=== PATIENT | female | born 1990 | race African-American/Black ===

== ENCOUNTER 2017-03-09 10:46 | Emergency (ER) | payer MEDICAID ==
[2017-03-09 11:00] VITALS: BP 116/78
--- NOTE | 2017-03-09 11:08 | ER Document Report ---
ED Medical Screen (RME) - General Chief Complaint: Abdominal Pain Stated Complaint: URINARY PAIN Time Seen by Provider: 03/09/17 11:06 Notes: Patient says that she is having discomfort with urinating over the past week. She is prone to getting UTIs. Has not noted any urinary burning or stinging or blood present. She started noticing some pain in her right lower abdomen this morning. She has not had any vomiting or diarrhea. Has not had any fever. Patient says she is prone to getting BV. LMP February 19, on no control. No abdominal surgeries. Only medication is phenteramine for weight control TRAVEL OUTSIDE OF THE [place] IN LAST 30 DAYS: No - Related Data Allergies/Adverse Reactions: No Known Allergies Allergy (Verified 03/09/17 10:58) Past Medical History Renal/ Medical History: Denies: Hx Peritoneal Dialysis - Immunizations Immunizations up to date: Yes Hx Diphtheria, Pertussis, Tetanus Vaccination: Yes Physical Exam - Vital signs Vitals: Temp Pulse Resp BP Pulse Ox 98.7 F 85 16 116/78 100 03/09/17 10:59 03/09/17 10:59 03/09/17 10:59 03/09/17 10:59 03/09/17 10:59 Course - Vital Signs Vital signs: Temp Pulse Resp BP Pulse Ox 98.7 F 85 16 116/78 100 03/09/17 10:59 03/09/17 10:59 03/09/17 10:59 03/09/17 10:59 03/09/17 10:59
[2017-03-09 11:36] LABS: ABSOLUTE EOSINOPHILS # (AUTO) 0.3 10^3/uL (0.0-0.6); ABSOLUTE LYMPHOCYTES (AUTO) 1.3 10^3/uL (0.5-4.7); ABSOLUTE MONOCYTES (AUTO) 0.6 10^3/uL (0.1-1.4); ABSOLUTE NEUT (AUTO) 3.7 10^3/uL (1.7-8.2); BASOPHILS % (AUTO) 0.6 % (0-2); EOSINOPHILS % (AUTO) 5.6 % (0-6); HEMATOCRIT 36.9 % (36.0-47.0); HGB HCT DIFFERENCE -0.9; LYMPHOCYTES % (AUTO) 21.3 % (13-45); MEAN CORPUSCULAR HEMOGLOBIN 27.4 pg (27.0-33.4); MEAN CORPUSCULAR HGB CONC 32.7 g/dL (32.0-36.0); MEAN CORPUSCULAR VOLUME 84 fl (80-97); MONOCYTES % (AUTO) 9.3 % (3-13); RED BLOOD COUNT 4.39 10^6/uL (3.72-5.28); RED CELL DISTRIBUTION WIDTH 13.5 % (11.5-14.0); SEGMENTED NEUTROPHILS % (AUTO) 63.2 % (42-78); WHITE BLOOD COUNT 5.9 10^3/uL (4.0-10.5)
[2017-03-09 11:41] LABS: APPEARANCE,URINE SLIGHTLY-CLOUDY; BILIRUBIN,URINE NEGATIVE (NEGATIVE); GLUCOSE, URINE NEGATIVE (NEGATIVE); KETONES,URINE NEGATIVE (NEGATIVE); LEUKOCYTE ESTERASE,URINE SMALL (NEGATIVE); NITRITE,URINE NEGATIVE (NEGATIVE); PROTEIN,URINE 30 mg/dL (NEGATIVE); URINE SPECIFIC GRAVITY 1.018
--- NOTE | 2017-03-09 12:19 | ER Document Report ---
ED GI/ - General TRAVEL OUTSIDE OF THE [place] IN LAST 30 DAYS: No - HPI Onset: Other - Refer to HPI notes Similar symptoms previously: Yes Recently seen / treated by doctor: No <GAMALIEL BALDWIN - Last Filed: 03/09/17 13:31> <SUNNY NICKERSON - Last Filed: 03/09/17 14:48> - General Chief Complaint: Abdominal Pain Stated Complaint: URINARY PAIN Time Seen by Provider: 03/09/17 11:06 Notes: Patient is a 26 year old female presenting to the emergency department for pelvic pain and abdominal pain. Patient has discomfort and pelvic pain after she urinates. Patient also has had some RLQ abdominal pain this morning. Patient has yellowish/brownish vaginal discharge x4 days. Patient's last menstrual cycle was 02/19/17. Patient states she has frequent UTIs but denies any dysuria, burning, or hematuria. Patient takes phenteramine for weight control. (GAMALIEL BALDWIN) - Related Data Allergies/Adverse Reactions: No Known Allergies Allergy (Verified 03/09/17 10:58) Past Medical History - General Information source: Patient - Social History Smoking Status: Never Smoker Cigarette use (# per day): No Chew tobacco use (# tins/day): No Frequency of alcohol use: Occasional Drug Abuse: None Occupation: [employer] Family History: CAD, Hyperlipidemia, Thyroid Disfunction Patient has suicidal ideation: No Patient has homicidal ideation: No - Medical History Medical History: Negative Surgical Hx: Negative - Immunizations Immunizations up to date: Yes Hx Diphtheria, Pertussis, Tetanus Vaccination: Yes <GAMALIEL BALDWIN - Last Filed: 03/09/17 13:31> Review of Systems - Review of Systems Constitutional: No symptoms reported EENT: No symptoms reported Cardiovascular: No symptoms reported Respiratory: No symptoms reported Gastrointestinal: See HPI, Abdominal pain Genitourinary: No symptoms reported Female Genitourinary: See HPI, Last menstrual period - 02/19/17, Vaginal discharge Musculoskeletal: No symptoms reported Skin: No symptoms reported Hematologic/Lymphatic: No symptoms reported Neurological/Psychological: No symptoms reported -: Yes All other systems reviewed and negative <GAMALIEL BALDWIN - Last Filed: 03/09/17 13:31> Physical Exam - Vital signs Interpretation: Normal - General General appearance: Appears well, Alert In distress: Mild - HEENT Head: Normocephalic, Atraumatic Eyes: Normal Pupils: PERRL Mucous membranes: Moist - Respiratory Respiratory status: No respiratory distress Chest status: Nontender Breath sounds: Normal Chest palpation: Normal - Cardiovascular Rhythm: Regular Heart sounds: Normal auscultation Murmur: No - Abdominal Inspection: Normal Distension: No distension Bowel sounds: Normal Tenderness: Tender - Lower abdominal and pelvic tenderness to palpation Organomegaly: No organomegaly - Back Back: Normal, Nontender - Extremities General upper extremity: Normal inspection, Normal ROM, Normal strength General lower extremity: Normal inspection, Normal ROM, Normal strength - Neurological Neuro grossly intact: Yes Cognition: Normal Orientation: AAOx4 [place] Coma Scale Eye Opening: Spontaneous [place] Coma Scale Verbal: Oriented [place] Coma Scale Motor: Obeys Commands [place] Coma Scale Total: 15 Speech: Normal - Psychological Associated symptoms: Normal affect, Normal mood - Skin Skin Temperature: Warm Skin Moisture: Dry <GAMALIEL BALDWIN - Last Filed: 03/09/17 13:31> - Genitourinary External exam: Normal Speculum exam: Cervix closed, Vaginal discharge Vaginal bleeding: None Bimanuel exam: Cervical motion tender, Adnexal tenderness, Other - Uterus is very tender to palpate <SUNNY NICKERSON - Last Filed: 03/09/17 14:48> - Vital signs Vitals: Temp Pulse Resp BP Pulse Ox 98.7 F 85 16 116/78 100 03/09/17 10:59 03/09/17 10:59 03/09/17 10:59 03/09/17 10:59 03/09/17 10:59 Course - Laboratory Result Diagrams: 03/09/17 11:15 <GAMALIEL BALDWIN - Last Filed: 03/09/17 13:31> - Laboratory Result Diagrams: 03/09/17 11:15 <SUNNY NICKERSON - Last Filed: 03/09/17 14:48> - Vital Signs Vital signs: Temp Pulse Resp BP Pulse Ox 98.7 F 85 16 116/78 100 03/09/17 10:59 03/09/17 10:59 03/09/17 10:59 03/09/17 10:59 03/09/17 10:59 - Laboratory Laboratory results interpreted by me: 03/09/17 11:15 Urine Protein 30 H Urine Urobilinogen 2.0 H Ur Leukocyte Esterase SMALL H Discharge <GAMALIEL BALDWIN - Last Filed: 03/09/17 13:31> <GUILLERMO NICKERSONALL - Last Filed: 03/09/17 14:48> - Discharge Clinical Impression: Trichomonas infection, Pelvic inflammatory disease (PID) Condition: Stable Disposition: HOME, SELF-CARE Additional Instructions: Pelvic Inflammatory Disease: You have been diagnosed as having pelvic inflammatory disease (PID). This is an infection of the fallopian tubes and surrounding areas of the pelvis. Symptoms are usually pelvic pain and discharge. The infection can do permanent damage to the tubes and ovaries. It should be taken very seriously. Treatment is antibiotics, which may be given by vein or by injection if the infection seems serious. It's important that you receive all recommended medication. Condoms help prevent spread of this infection to others. Because this infection is spread sexually, it's important that your sexual partner be checked before resuming sexual relations. If a culture shows gonorrhea or chlamydia organisms, the law requires that this be reported to the health department. Call the doctor or return at once if you develop increasing fever, rash, severe pelvic pain, vaginal bleeding (other than your period), or problems with your bladder or bowels. Trichomonas Infection: Trichomoniasis is infection of the vagina or male genital tract with Trichomonas vaginalis. It can be asymptomatic or cause urethritis, vaginitis, or occasionally cystitis, epididymitis, or prostatitis. Diagnosis is by microscopic examination of vaginal or prostatic secretions or by urethral culture. Patients and sex partners are treated with metronidazole. T. vaginalis is a flagellated, sexually transmitted protozoan that more often infects women (about 20% of women of reproductive age) than men. Infection may be asymptomatic in either sex, but asymptomatic is the rule for men. In men, protozoa may persist for long periods in the tract without causing symptoms; thus, protozoa may be transmitted unwittingly to sex partners. Trichomoniasis may account for up to 5% of nongonococcal, nonchlamydial urethritis in men in some areas. Co-infection with gonorrhea and other sexually transmitted diseases (STDs) is common. In women, symptoms range from none to copious, yellow-green, frothy vaginal discharge with soreness of the vulva and perineum, dyspareunia, and dysuria. Asymptomatic infection may become symptomatic at any time as the vulva and perineum become inflamed and edema develops in the labia. The vaginal bell and surface of the cervix may have punctate, red "strawberry" spots. Urethritis and possibly cystitis may also occur. Men are usually asymptomatic; however, sometimes urethritis results in a discharge that may be transient, frothy, or purulent or that causes dysuria and frequency, usually early in the morning. Often, urethritis is mild and causes only minimal urethral irritation and occasional moisture at the urethral meatus , under the foreskin, or both. Epididymitis and prostatitis are rare complications. Trichomoniasis is suspected in women with vaginitis, in men with urethritis , and in their sex partners. Suspicion is high if symptoms persist after patients have been evaluated and treated for other infections such as gonorrhea and chlamydial, mycoplasmal, and ureaplasmal infections. In women, diagnosis is based on clinical criteria and in-office testing. The saline wet mount is examined microscopically as soon as possible to detect trichomonads.In men, microscopy of urine is insensitive, although occasionally organisms are visible in a first-voided morning specimen or a centrifuged specimen. Cultures of urine and urethral swabs are more sensitive. As with diagnosis of any STD, patients with trichomoniasis should be tested to exclude other common STDs such as gonorrhea and chlamydial infection. Metronidazole or tinidazole 2 g po in a single dose cures up to 95% of women if sex partners are treated simultaneously. Effectiveness of single-dose regimens in men is not as clear, so treatment is typically with metronidazole or tinidazole 500 mg bid for 5 to 7 days. Sex partners should be screened and treated for trichomoniasis and other STDs. If poor adherence to follow-up is likely, treatment can be initiated in sex partners of patients with documented trichomoniasis without confirming the diagnosis in the partner. TAKE THE MEDICATIONS PRESCRIBED. HAVE YOUR PARTNER TREATED AT THE HEALTH DEPARTMENT. FOLLOW UP WITH YOUR DOCTOR NEXT WEEK FOR RECHECK. Prescriptions: Doxycycline Hyclate 100 mg PO BID #14 capsule Metronidazole 500 mg PO BID #14 tablet Referrals: CURT SAUL MD [Primary Care Provider] - Follow up in 3-5 days Sharon Attestation: 03/09/17 14:48 I personally performed the services described in the documentation, reviewed and edited the documentation which was dictated to the scribe in my presence, and it accurately records my words and actions. (SUNNY NICKERSON) Scribe Documentation - Scribe Written by Scribe:: Sharon Blackwood 03/09/17 12:26 acting as scribe for :: Malinda <GAMALIEL BALDWIN - Last Filed: 03/09/17 13:31>
[2017-03-09] MEDS ORDERED: LIDOCAINE 1% INJ-PF (10 MG/ML) 30 ML SDV INJ ONE (12:59)
[2017-03-09] MEDS ORDERED: CEFTRIAXONE INJ 1000 MG VIAL IM ONE (12:59)
[2017-03-09] MEDS ORDERED: DOXYCYCLINE HYCLATE 100 MG TABLET PO ONE (13:02)
[2017-03-09 14:44] LABS: CHLAM PCR NOT DETECTED (NOT DETECT)
== END 2017-03-09 14:56 | disposition left against medical advice (07) ==
LOC: ER 10:46
DX: A59.00 Urogenital trichomoniasis, unspecified (principal); N74 Female pelvic inflammatory disorders in diseases classified elsewhere; Z87.440 Personal history of urinary (tract) infections; Z79.899 Other long term (current) drug therapy
CPT/HCPCS: 99284; 96372; 87210; 36415; 83690; 84703; 85025; 81001; 87491; 87591; J3490; J0696

== ENCOUNTER 2017-04-21 09:18 | Emergency (ER) | payer SELFPAY ==
[2017-04-21 09:32] VITALS: BP 116/70
--- NOTE | 2017-04-21 09:45 | ER Document Report ---
HPI - HPI Patient complains to provider of: dysuria Onset: Other - 2 weeks Onset/Duration: Persistent Quality of pain: Burning Pain Level: 1 Context: Patient presents complaining of cloudy urine with odor and dysuria. Patient complains of vaginal irritation. Patient denies any vaginal bleeding or discharge. Patient denies any concerns about . Patient states she was here last month for similar complaint and was treated with an antibiotic. Patient states symptoms initially improved and then returned about a week later. Associated Symptoms: Other - dysuria. denies: Fever Exacerbated by: Denies Relieved by: Denies - REPRODUCTIVE Reproductive: DENIES: : - DERM Skin Color: Normal Past Medical History - General Last Menstrual Period: 03/21/2017 - Social History Smoking Status: Never Smoker Chew tobacco use (# tins/day): No Frequency of alcohol use: Occasional Drug Abuse: None Family History: CAD, Hyperlipidemia, Thyroid Disfunction Patient has suicidal ideation: No Patient has homicidal ideation: No Renal/ Medical History: Denies: Hx Peritoneal Dialysis Surgical Hx: Negative - Immunizations Immunizations up to date: Yes Hx Diphtheria, Pertussis, Tetanus Vaccination: Yes Vertical Provider Document - CONSTITUTIONAL Agree With Documented VS: Yes Exam Limitations: No Limitations - INFECTION CONTROL TRAVEL OUTSIDE OF THE [place] IN LAST 30 DAYS: No - HEENT HEENT: Atraumatic, Normocephalic - NECK Neck: Normal Inspection, Supple - RESPIRATORY Respiratory: Breath Sounds Normal, No Respiratory Distress O2 Sat by Pulse Oximetry: 97 - CARDIOVASCULAR Cardiovascular: Regular Rate, Regular Rhythm, No Murmur - GI/ABDOMEN Gastrointestinal: Abdomen Soft, Abdomen Non-Tender, No Organomegaly - REPRODUCTIVE Female Genitalia: CMT. negative: Adnexal Pain-Right, Adnexal Pain-Left Notes: small amount of blood to vagina, no clots - BACK Back: Normal Inspection. negative: CVA Tenderness-Right, CVA Tenderness-Left - MUSCULOSKELETAL/EXTREMETIES Musculoskeletal/Extremeties: SETH DUPREE - NEURO Level of Consciousness: Awake, Alert, Appropriate Motor/Sensory: No Motor Deficit - DERM Integumentary: Warm, Dry, No Rash Course - Re-evaluation Re-evalutation: 04/21/17 11:01 Patient at her previous ER visit was given Rocephin and a single dose of doxycycline. Patient states that she got upset during her visit and left prior to receiving her diagnosis or her prescriptions. Patient was not treated for trichomonas infection at her previous ER visit. Although patient's wet prep today was not positive for trichomonas, plan will be to treat patient as her symptoms are clinically consistent with a trichomonas infection. Patient encouraged to have her partner seek treatment for Trichomonas as well. Plan will be to cover for gonorrhea and chlamydia in addition to the trichomonas. Consulted with Dr. Lacy who is in agreement with this plan - Vital Signs Vital signs: Temp Pulse Resp BP Pulse Ox 98.2 F 80 14 116/70 97 04/21/17 09:27 04/21/17 09:27 04/21/17 09:33 04/21/17 09:27 04/21/17 09:27 - Laboratory Laboratory results interpreted by me: 04/21/17 11:02 Labs- Entire Visit 04/21/17 04/21/17 09:40 09:50 Urine Color YELLOW Urine Appearance SLIGHTLY-CLOUDY Urine pH 5.0 Ur Specific [place] 1.016 Urine Protein NEGATIVE Urine Glucose (UA) NEGATIVE Urine Ketones NEGATIVE Urine Blood SMALL H Urine Nitrite NEGATIVE Urine Bilirubin NEGATIVE Urine Urobilinogen NEGATIVE Ur Leukocyte Esterase TRACE H Urine WBC (Auto) 14 Urine RBC (Auto) 1 Urine Bacteria (Auto) TRACE Squamous Epi Cells Auto 1 Urine Mucus (Auto) FEW Urine Ascorbic Acid NEGATIVE Urine HCG, Qual NEGATIVE Epi Cells (Wet Prep) 3+ EPITHELIALS SEEN Bacteria (Wet Prep) 3+ BACTERIA SEEN Trichomonas (Wet Prep) NO TRICHOMONAS SEEN Vaginal WBC FEW WBCS SEEN Vaginal RBC 1+ RBCS SEEN Vaginal Yeast NO YEAST SEEN reviewed Labs from patient's previous ER visit 04/21/17 14:30 Discharge - Discharge Clinical Impression: Trichomonal infection, Urinary symptom or sign Condition: Stable Disposition: HOME, SELF-CARE Instructions: Trichomonas Infection ([facility]), Metronidazole ([facility]), Rocephin ([facility]) , Azithromycin ([facility]) Additional Instructions: Return immediately for any new or worsening symptoms Followup with your primary care provider, call tomorrow to make a followup appointment Have your partner seek treatment for trichomonas Cultures are pending, we will call if you need any different treatment Forms: Return to Work Referrals: [facility] [Provider Group] - Follow up as needed
[2017-04-21] MEDS ORDERED: ONDANSETRON 4 MG TAB.RAPDIS PO ONE (09:55)
[2017-04-21 09:58] LABS: APPEARANCE,URINE SLIGHTLY-CLOUDY; BILIRUBIN,URINE NEGATIVE (NEGATIVE); GLUCOSE, URINE NEGATIVE (NEGATIVE); KETONES,URINE NEGATIVE (NEGATIVE); LEUKOCYTE ESTERASE,URINE TRACE (NEGATIVE); NITRITE,URINE NEGATIVE (NEGATIVE); PROTEIN,URINE NEGATIVE (NEGATIVE); URINE SPECIFIC GRAVITY 1.016; UROBILINOGEN,URINE NEGATIVE mg/dL (<2.0)
[2017-04-21] MEDS ORDERED: CEFTRIAXONE INJ 1000 MG VIAL IM ONE (10:43)
[2017-04-21] MEDS ORDERED: AZITHROMYCIN 250 MG TABLET PO ONE (10:43)
[2017-04-21] MEDS ORDERED: LIDOCAINE 1% INJ-PF (10 MG/ML) 30 ML SDV INJ ONE (10:43)
[2017-04-21] MEDS ORDERED: METRONIDAZOLE 500 MG TABLET PO ONE (10:43)
[2017-04-21 12:03] LABS: CHLAM PCR NOT DETECTED (NOT DETECT)
== END 2017-04-21 11:42 | disposition home or self-care (01) ==
LOC: ER 09:18
DX: A59.9 Trichomoniasis, unspecified (principal); R10.2 Pelvic and perineal pain
CPT/HCPCS: 99283; 96372; 87086; 87210; 81025; 87088; 81001; 87186; 87491; 87591; S0119; J3490; J0696

== ENCOUNTER 2018-10-11 10:40 | Emergency (ER) | payer MEDICAID ==
[2018-10-11 12:39] LABS: APPEARANCE,URINE CLEAR; BILIRUBIN,URINE NEGATIVE (NEGATIVE); COLOR,URINE YELLOW; GLUCOSE, URINE NEGATIVE (NEGATIVE); KETONES,URINE NEGATIVE (NEGATIVE); LEUKOCYTE ESTERASE,URINE NEGATIVE (NEGATIVE); NITRITE,URINE NEGATIVE (NEGATIVE); PROTEIN,URINE NEGATIVE (NEGATIVE); URINE SPECIFIC GRAVITY 1.011; UROBILINOGEN,URINE NEGATIVE mg/dL (<2.0)
[2018-10-11 12:51] LABS: ABSOLUTE EOSINOPHILS # (AUTO) 0.5 10^3/uL (0.0-0.6); ABSOLUTE MONOCYTES (AUTO) 0.6 10^3/uL (0.1-1.4); ABSOLUTE NEUT (AUTO) 3.7 10^3/uL (1.7-8.2); BASOPHILS % (AUTO) 0.8 % (0-2); EOSINOPHILS % (AUTO) 8.6 % (0-6); HEMATOCRIT 31.6 % (36.0-47.0); HEMOGLOBIN 10.7 g/dL (12.0-15.5); MEAN CORPUSCULAR HGB CONC 33.8 g/dL (32.0-36.0); MEAN CORPUSCULAR VOLUME 80 fl (80-97); MONOCYTES % (AUTO) 9.9 % (3-13); PLATELET COUNT 354 10^3/uL (150-450); RED BLOOD COUNT 3.95 10^6/uL (3.72-5.28); RED CELL DISTRIBUTION WIDTH 17.1 % (11.5-14.0); SEGMENTED NEUTROPHILS % (AUTO) 63.7 % (42-78); TOTAL CELLS COUNTED % (AUTO) 100 %; WHITE BLOOD COUNT 5.8 10^3/uL (4.0-10.5)
--- NOTE | 2018-10-11 12:57 | ER Document Report ---
ED General - General Chief Complaint: Vag Bleeding, +preg <12wks Stated Complaint: ABDOMINAL CRAMPING Time Seen by Provider: 10/11/18 11:54 TRAVEL OUTSIDE OF THE [place] IN LAST 30 DAYS: No - HPI Notes: Patient is a 28-year-old female that presents to the emergency department for chief complaint of vaginal bleeding in . Patient is with a LMP 08/22/18, 7 weeks 1 day by dates. She reports this morning she started having a light pink vaginal bleeding. Vaginal discharge or malodor. She denies any urinary frequency or dysuria. Patient states she has some associated lower abdominal cramping which is intermittent and sharp in nature. She denies any she has not taken any rpnk-prr-[id number] pain medications. She is taking vitamins. She has had her confirmed by her primary care doctor who referred her to the health department, she has not yet seen SALES SERVICE REPRESENTATIVE. She denies ever needing RhoGam in the past. She denies nausea and vomiting. Past Medical History: Negative Past Surgical History: [place] butt lift Social History: Denies drugs alcohol and tobacco Family History: Reviewed and noncontributory for presenting illness Allergies: Reviewed, see documented allergy list. REVIEW OF SYSTEMS: CONSTITUTIONAL : No fever No chills No diaphoresis No recent illness EENT: No vision changes No congestion No sore throat CARDIOVASCULAR: No chest pain No palpitations RESPIRATORY: No shortness of breath No cough No difficulty breathing GASTROINTESTINAL: abdominal pain No nausea No vomiting No diarrhea GENITOURINARY: No dysuria Vaginal bleeding No hematuria No difficulty urinating MUSCULOSKELETAL: No back pain No leg pain No arm pain SKIN: No rashes No lesions LYMPHATIC: No swollen, enlarged glands. NEUROLOGICAL: No lightheadedness No headache No weakness No paresthesias PSYCHIATRIC: No anxiety No depression PHYSICAL EXAMINATION: Vital signs reviewed, nursing noted reviewed. GENERAL: Well-appearing, well-nourished and in no acute distress. HEAD: Atraumatic, normocephalic. EYES: Eyes appear normal, extraocular movements intact, sclera anicteric, conjunctiva are normal. ENT: nares patent, oropharynx clear without exudates. Moist mucous membranes. NECK: Normal range of motion, supple without lymphadenopathy LUNGS: Breath sounds clear to auscultation bilaterally and equal. No wheezes rales or rhonchi. HEART: Regular rate and rhythm without murmurs ABDOMEN: Soft, nontender, normoactive bowel sounds. No rebound, guarding, or rigidity. No masses appreciated. EXTREMITIES: Nontender, good range of motion, no pitting or edema. NEUROLOGICAL: No focal neurological deficits. Moves all extremities spontaneously Motor and sensory grossly intact on exam. PSYCH: Normal mood, normal affect. SKIN: Warm, Dry, normal turgor, no rashes or lesions noted on exposed skin - Related Data Allergies/Adverse Reactions: No Known Allergies Allergy (Verified 03/09/17 10:58) Past Medical History - Social History Smoking Status: Never Smoker Chew tobacco use (# tins/day): No Frequency of alcohol use: None Drug Abuse: None Family History: CAD, Hyperlipidemia, Thyroid Disfunction Patient has suicidal ideation: No Patient has homicidal ideation: No Renal/ Medical History: Denies: Hx Peritoneal Dialysis - Immunizations Immunizations up to date: Yes Hx Diphtheria, Pertussis, Tetanus Vaccination: Yes Physical Exam - Vital signs Vitals: Temp Pulse Resp BP Pulse Ox 98.7 F 75 14 115/61 100 10/11/18 11:00 10/11/18 11:00 10/11/18 11:00 10/11/18 11:00 10/11/18 11:00 Course - Re-evaluation Re-evalutation: 10/11/18 12:57 Vitals reviewed. Nursing notes reviewed. Patient afebrile and nontoxic. Abdominal exam is soft with no tenderness. Urine screening test is positive for . Patient offered Tylenol for her pain and declined. Ultrasound will be obtained to evaluate for ectopic . 10/11/18 14:16 Patient has only had minimal bleeding in the emergency room. She has 6-week 5- day gestation on ultrasound. There is no ectopic . She is Rh+ and not requiring RhoGam. Her hemoglobin is 10 which is around patient's baseline. She will be discharged home in stable condition with SALES SERVICE REPRESENTATIVE referral. Laboratory 10/11/18 10/11/18 10/11/18 12:10 12:30 12:30 WBC 5.8 RBC 3.95 Hgb 10.7 L Hct 31.6 L MCV 80 MCH 27.0 MCHC 33.8 RDW 17.1 H Plt Count 354 Seg Neutrophils % 63.7 Lymphocytes % 17.0 Monocytes % 9.9 Eosinophils % 8.6 H Basophils % 0.8 Absolute Neutrophils 3.7 Absolute Lymphocytes 1.0 Absolute Monocytes 0.6 Absolute Eosinophils 0.5 Absolute Basophils 0.0 Beta HCG, Quant Total Beta HCG Urine Color YELLOW Urine Appearance CLEAR Urine pH 7.0 Ur Specific [place] 1.011 Urine Protein NEGATIVE Urine Glucose (UA) NEGATIVE Urine Ketones NEGATIVE Urine Blood NEGATIVE Urine Nitrite NEGATIVE Urine Bilirubin NEGATIVE Urine Urobilinogen NEGATIVE Ur Leukocyte Esterase NEGATIVE Urine WBC (Auto) 1 Urine RBC (Auto) 0 Squamous Epi Cells Auto 1 Urine Mucus (Auto) RARE Urine Ascorbic Acid NEGATIVE Urine HCG, Qual POSITIVE H Blood Type B POSITIVE Rhogam Indicated RHOGAM NOT INDICATED 10/11/18 12:30 WBC RBC Hgb Hct MCV MCH MCHC RDW Plt Count Seg Neutrophils % Lymphocytes % Monocytes % Eosinophils % Basophils % Absolute Neutrophils Absolute Lymphocytes Absolute Monocytes Absolute Eosinophils Absolute Basophils Beta HCG, Quant 09219.00 H Total Beta HCG POSITIVE Urine Color Urine Appearance Urine pH Ur Specific [place] Urine Protein Urine Glucose (UA) Urine Ketones Urine Blood Urine Nitrite Urine Bilirubin Urine Urobilinogen Ur Leukocyte Esterase Urine WBC (Auto) Urine RBC (Auto) Squamous Epi Cells Auto Urine Mucus (Auto) Urine Ascorbic Acid Urine HCG, Qual Blood Type Rhogam Indicated Transvaginal US 10/11/18 11:54 IMPRESSION: Live intrauterine of 6 weeks 5 days. There is a 6 cm left ovarian cyst. Trimester of : First - 0 to 13 weeks. - Vital Signs Vital signs: Temp Pulse Resp BP Pulse Ox 98.7 F 75 14 115/61 100 10/11/18 11:00 10/11/18 11:00 10/11/18 11:00 10/11/18 11:00 10/11/18 11:00 - Laboratory Result Diagrams: 10/11/18 12:30 Laboratory results interpreted by me: 10/11/18 10/11/18 10/11/18 12:10 12:30 12:30 Hgb 10.7 L Hct 31.6 L RDW 17.1 H Eosinophils % 8.6 H Beta HCG, Quant 74889.00 H Urine HCG, Qual POSITIVE H Discharge - Discharge Clinical Impression: Vaginal bleeding during Condition: Stable Disposition: HOME, SELF-CARE Instructions: Threatened Miscarriage ([facility]) Additional Instructions: Please return to the emergency department if you have any worsening, or concern of your symptoms. Please return to the emergency department if you develop chest pain, difficulty breathing, severe abdominal pain, or ongoing vomiting. Please follow-up with your primary care physician in 2-3 days and any other recommended physicians. If prescribed, take all medications as directed. If you have any questions or concerns do not hesitate to return the emergency department for evaluation. You are due date is 06/01/19. Your 6 weeks and 5 days along in your according to the ultrasound Referrals: [facility] [Provider Group] - Follow up in 1 week
--- NOTE | 2018-10-11 14:12 | RADIOLOGY REPORT (SQ) ---
EXAM DESCRIPTION: U/S OB TRANSVAG W/DOPPLER COMPLETED DATE/TIME: 10/11/2018 1:56 pm REASON FOR STUDY: vaginal bleeding COMPARISON: None. TECHNIQUE: Transvaginal static and realtime grayscale images acquired of the pelvis. Additional evy cted spectral and color Doppler images recorded. All images stored on PACs. bHCG: Not available. CLINICAL DATES: LMP 08/22/2018. 7 weeks 1 day. LIMITATIONS: None. FINDINGS: FETUS: Single Living intrauterine . ULTRASOUND EGA: 6 weeks 5 days ULTRASOUND GENET: 06/01/2019 EFW: Not applicable less than 20 weeks. CRL: 7.4 mm FHR: 145 beats per minute. SURVEY: Too early to assess. AMNIOTIC FLUID: Adequate amount. PLACENTA: Not yet developed due to early gestation. SUBCHORIONIC BLEED: No SIZE OF BLEED: Not applicable. UTERUS: No masses or anomalies. 10.5 x 7.3 x 6.2 cm. CERVICAL LENGTH: 2.5 cm. Closed. RIGHT ADNEXA: Ovary not seen. No adnexal free fluid. No adnexal masses. LEFT ADNEXA: Normal vascular flow. Ovary measures 8.1 x 7.1 x 5.5 cm. There is a 6.6 x 6.1 x 4.8 cm cyst. No adnexal free fluid. No adnexal masses. FREE FLUID: None. OTHER: No other significant finding. IMPRESSION: Live intrauterine of 6 weeks 5 days. There is a 6 cm left ovarian cyst. Trimester of : First - 0 to 13 weeks. TECHNICAL DOCUMENTATION: JOB ID: [id number] [employer]- All Rights Reserved rev Reading location - IP/workstation name: [email or web address]
[2018-10-11 14:47] VITALS: BP 104/64
== END 2018-10-11 14:47 | disposition home or self-care (01) ==
LOC: ER 10:40
DX: O20.9 Hemorrhage in early pregnancy, unspecified (principal); O34.81 Maternal care for other abnormalities of pelvic organs, first trimester; N83.202 Unspecified ovarian cyst, left side; O26.891 Other specified pregnancy related conditions, first trimester; R10.30 Lower abdominal pain, unspecified; Z3A.01 Less than 8 weeks gestation of pregnancy
CPT/HCPCS: 36415; 76817; 81001; 81025; 84702; 85025; 86900; 86901; 93976; 99284

== ENCOUNTER → 2018-10-26 | Outpatient (CLI) | payer MEDICAID ==
--- NOTE | 2018-10-26 15:06 | RADIOLOGY REPORT (SQ) ---
EXAM DESCRIPTION: U/S [id number] TRNABD 1GES W/ODOP COMPLETED DATE/TIME: 10/26/2018 2:08 pm REASON FOR STUDY: ENCOUNTER FOR SUPRVSN OF NORMAL , FIRST TRIMESTER Z34.81 ENCOUNTER FOR S UPRVSN OF NORMAL , FIRST TRIM COMPARISON: None. TECHNIQUE: Transabdominal static and realtime grayscale images acquired of the pelvis. Additional se lected spectral and color Doppler images recorded. All images stored on PACs. bHCG: Not available. CLINICAL DATES: GENET: 05/29/2019 EGA: 9 weeks 2 days LIMITATIONS: None. FINDINGS: FETUS: Single Living intrauterine . ULTRASOUND EGA: 9 weeks 5 days ULTRASOUND GENET: 06/05/2019 EFW: Not applicable less than 20 weeks. CRL: 2.7 cm FHR: 169 beats per minute. SURVEY: Notobtained. AMNIOTIC FLUID: Adequate amount. PLACENTA: Not yet developed due to early gestation. SUBCHORIONIC BLEED: No. SIZE OF BLEED: Not applicable. UTERUS: The uterus measures 13.4 x 8.5 x 9.1 cm. No masses. No anomalies. CERVICAL LENGTH: 3.2 cm. Closed. RIGHT ADNEXA: The right ovary measures 5.0 x 7.5 x 3.4 cm. Normal vascular flow. No adnexal free fluid. A 7.3 x 5.7 x 8.3 cm cyst. LEFT ADNEXA: Left ovary measures 5.3 x 7.9 cm. Normal ovary with normal vascular flow. No adnexal free fluid. No adnexal masses. FREE FLUID: None. OTHER: No other significant finding. IMPRESSION: LIVING INTRAUTERINE . EGA: 9 weeks 5 days Large RIGHT ovarian cyst. Trimester of : First - 0 to 13 weeks. COMMENT: 1. The results of this examination were called to the patient's provider on 10/26/2018. TECHNICAL DOCUMENTATION: JOB ID: [id number]- All Rights Reserved Reading location - IP/workstation name: [email or web address]
== END ==
LOC: RAD 13:34
PROVIDERS: ATTEND Nurse Practitioner
DX: Z34.81 Encounter for supervision of other normal pregnancy, first trimester (principal)
CPT/HCPCS: 76801

== ENCOUNTER → 2018-11-06 | Outpatient (CLI) | payer MEDICAID ==
--- NOTE | 2018-11-06 15:56 | RADIOLOGY REPORT (SQ) ---
EXAM DESCRIPTION: U/S [id number] TRNABD 1GES W/ODOP COMPLETED DATE/TIME: 11/06/2018 3:27 pm REASON FOR STUDY: Z34.81 ENCOUNTER FOR SUPRVSN OF NORMAL , FIRST TRIMESTER Z34.81 ENCOUNTE R FOR SUPRVSN OF NORMAL , FIRST TRIM COMPARISON: 10/26/2018 TECHNIQUE: Transabdominal static and realtime grayscale images acquired of the pelvis. Additional se lected spectral and color Doppler images recorded. All images stored on PACs. bHCG: Not applicable. CLINICAL DATES: 11 weeks LIMITATIONS: None. FINDINGS: FETUS: Single Living intrauterine . ULTRASOUND EGA: 11 weeks 2 days ULTRASOUND GENET: 05/26/2019 EFW: Not applicable less than 20 weeks. CRL: 4.4 cm FHR: 163 beats per minute. SURVEY: Too early to assess. AMNIOTIC FLUID: Adequate amount. PLACENTA: Not yet developed due to early gestation. SUBCHORIONIC BLEED: No SIZE OF BLEED: Not applicable. UTERUS: No masses. No anomalies. CERVICAL LENGTH: 4.3 cm Closed. RIGHT ADNEXA: Normal ovary with normal vascular flow. No adnexal free fluid. No adnexal masses. LEFT ADNEXA: Normal ovary with normal vascular flow. No adnexal free fluid. No adnexal masses. FREE FLUID: None. OTHER: No other significant finding. IMPRESSION: LIVING INTRAUTERINE . EGA 11 weeks 2 days Trimester of : First - 0 to 13 weeks. TECHNICAL DOCUMENTATION: JOB ID: [id number] [employer]- All Rights Reserved rev Reading location - IP/workstation name: [email or web address]
== END ==
LOC: RAD 15:57
PROVIDERS: ATTEND Nurse Practitioner
DX: Z34.81 Encounter for supervision of other normal pregnancy, first trimester (principal)
CPT/HCPCS: 76801

== ENCOUNTER 2019-04-23 09:46 | Outpatient (CLI) | payer MEDICAID ==
[2019-04-23 10:35] LABS: APPEARANCE,URINE CLEAR; BILIRUBIN,URINE NEGATIVE (NEGATIVE); COLOR,URINE YELLOW; GLUCOSE, URINE NEGATIVE (NEGATIVE); KETONES,URINE NEGATIVE (NEGATIVE); LEUKOCYTE ESTERASE,URINE NEGATIVE (NEGATIVE); NITRITE,URINE NEGATIVE (NEGATIVE); PROTEIN,URINE NEGATIVE (NEGATIVE); URINE SPECIFIC GRAVITY 1.008; UROBILINOGEN,URINE NEGATIVE mg/dL (<2.0)
[2019-04-23 10:54] LABS: URINE AMPHETAMINES SCREEN NEGATIVE; URINE BARBITURATES SCREEN NEGATIVE; URINE BENZODIAZEPINES SCREEN NEGATIVE; URINE COCAINE SCREEN NEGATIVE; URINE MARIJUANA (THC) SCREEN NEGATIVE; URINE METHADONE SCREEN NEGATIVE; URINE PHENCYCLIDINE SCREEN NEGATIVE
== END 2019-04-23 11:29 | disposition home or self-care (01) ==
LOC: LC 09:46
PROVIDERS: ATTEND Obstetrics & Gynecology
PROC: 4A1HXCZ Monitoring of Products of Conception, Cardiac Rate, External Approach (ICD-10-PCS; principal; 2019-04-23)
DX: O46.93 Antepartum hemorrhage, unspecified, third trimester (principal); Z3A.34 34 weeks gestation of pregnancy
CPT/HCPCS: 80307; 81001

== ENCOUNTER 2019-05-01 04:47 | Outpatient (CLI) | payer MEDICAID ==
--- NOTE | 2019-05-01 04:49 | Non Stress Test Report ---
Non Stress Test Datetime Report Generated by CPN: 05/01/2019 04:49 DEMOGRAPHIC EGA NST: 34.6 INDICATION Indication for Study: Ordered by Provider VITAL SIGNS Temperature - NST: 98.6 Pulse - NST: 93 RESP - NST: 18 NBPSYS NST: 109 NBPDIA NST: 68 MONITORING Monitor Explained: Monitor Explained; Test Explained; Patient Verbalized Understanding Time on Monitor: 04/23/2019 10:13 Time off Monitor: 04/23/2019 10:38 NST Duration: 25 NST INTERVENTIONS NST Interventions: PO Hydration Physician Notified NST: J. Shannon, CNM BABY A: [id number] BABY A Movement : Present Contraction Frequency : occasional FHR Baseline : 145 Accelerations : 15X15 Decelerations : None Variability : Moderate 6-25bpm NST Review: Meets Criteria for Reactive NST NST Results: Reactive NST REPORT Report Trigger: Send Report
[2019-05-01 05:23] LABS: APPEARANCE,URINE CLEAR; BILIRUBIN,URINE NEGATIVE (NEGATIVE); COLOR,URINE STRAW; GLUCOSE, URINE NEGATIVE (NEGATIVE); KETONES,URINE NEGATIVE (NEGATIVE); LEUKOCYTE ESTERASE,URINE NEGATIVE (NEGATIVE); NITRITE,URINE NEGATIVE (NEGATIVE); PROTEIN,URINE NEGATIVE (NEGATIVE); URINE SPECIFIC GRAVITY 1.012; UROBILINOGEN,URINE NEGATIVE mg/dL (<2.0)
[2019-05-01 05:38] LABS: URINE AMPHETAMINES SCREEN NEGATIVE; URINE BARBITURATES SCREEN NEGATIVE; URINE BENZODIAZEPINES SCREEN NEGATIVE; URINE COCAINE SCREEN NEGATIVE; URINE MARIJUANA (THC) SCREEN NEGATIVE; URINE METHADONE SCREEN NEGATIVE; URINE PHENCYCLIDINE SCREEN NEGATIVE
[2019-05-01] MEDS ORDERED: BETAMET ACET/BETAMET NA INJ 6 MG/1 ML ONE (07:16)
[2019-05-01] MEDS ORDERED: HYDROXYZINE PAMOATE 50 MG CAPSULE ONE (08:18)
== END 2019-05-01 08:41 | disposition home or self-care (01) ==
LOC: LC 04:47
PROVIDERS: ATTEND Obstetrics & Gynecology
PROC: 4A1HXCZ Monitoring of Products of Conception, Cardiac Rate, External Approach (ICD-10-PCS; principal; 2019-05-01)
DX: O47.03 False labor before 37 completed weeks of gestation, third trimester (principal); Z3A.35 35 weeks gestation of pregnancy
CPT/HCPCS: 59025; 81001; 80307; J0702

== ENCOUNTER 2019-05-02 15:39 | Outpatient (CLI) | payer MEDICAID ==
[2019-05-02 16:17] LABS: APPEARANCE,URINE SLIGHTLY-CLOUDY; BILIRUBIN,URINE NEGATIVE (NEGATIVE); COLOR,URINE YELLOW; GLUCOSE, URINE NEGATIVE (NEGATIVE); KETONES,URINE NEGATIVE (NEGATIVE); LEUKOCYTE ESTERASE,URINE SMALL (NEGATIVE); NITRITE,URINE NEGATIVE (NEGATIVE); PROTEIN,URINE NEGATIVE (NEGATIVE); URINE SPECIFIC GRAVITY 1.016; UROBILINOGEN,URINE NEGATIVE mg/dL (<2.0)
[2019-05-02 16:30] LABS: URINE AMPHETAMINES SCREEN NEGATIVE; URINE BARBITURATES SCREEN NEGATIVE; URINE BENZODIAZEPINES SCREEN NEGATIVE; URINE COCAINE SCREEN NEGATIVE; URINE MARIJUANA (THC) SCREEN NEGATIVE; URINE METHADONE SCREEN NEGATIVE; URINE PHENCYCLIDINE SCREEN NEGATIVE
--- NOTE | 2019-05-02 17:21 | Non Stress Test Report ---
Non Stress Test Datetime Report Generated by CPN: 05/02/2019 17:21 DEMOGRAPHIC EGA NST: 36.1 INDICATION Indication for Study: Ordered by Provider MONITORING Monitor Explained: Monitor Explained; Test Explained; Patient Verbalized Understanding Time on Monitor: 05/02/2019 15:57 Time off Monitor: 05/02/2019 16:55 NST Duration: 58 NST INTERVENTIONS NST Interventions: PO Hydration Physician Notified NST: p. nguyen CNM BABY A: [id number] BABY A Movement : Present Contraction Frequency : 2-4 FHR Baseline : 140 Accelerations : 15X15 Decelerations : None Variability : Moderate 6-25bpm NST Review: Meets Criteria for Reactive NST NST Review and Verified By : Magnus Zimmer RN NST Results: Reactive NST REPORT Report Trigger: Send Report
== END 2019-05-02 16:58 | disposition left against medical advice (07) ==
LOC: LC 15:39
PROVIDERS: ATTEND Obstetrics & Gynecology Gynecology
PROC: 4A1HXCZ Monitoring of Products of Conception, Cardiac Rate, External Approach (ICD-10-PCS; principal; 2019-05-02)
DX: Z34.93 Encounter for supervision of normal pregnancy, unspecified, third trimester (principal)
CPT/HCPCS: 59025; 80307; 81001; 84112

== ENCOUNTER 2020-02-15 17:47 | Observation (INO) | payer MEDICAID ==
[2020-02-15] MEDS ORDERED: BETAMET ACET/BETAMET NA INJ 6 MG/1 ML ONE (18:08)
[2020-02-15 18:32] LABS: APPEARANCE,URINE CLEAR; BILIRUBIN,URINE NEGATIVE (NEGATIVE); COLOR,URINE YELLOW; GLUCOSE, URINE NEGATIVE (NEGATIVE); KETONES,URINE NEGATIVE (NEGATIVE); LEUKOCYTE ESTERASE,URINE NEGATIVE (NEGATIVE); NITRITE,URINE NEGATIVE (NEGATIVE); PROTEIN,URINE NEGATIVE (NEGATIVE); URINE SPECIFIC GRAVITY 1.009; UROBILINOGEN,URINE NEGATIVE mg/dL (<2.0)
[2020-02-15] MEDS ORDERED: PENICILLIN G-K 5 MILLION UNIT VIAL IV ONE (18:44)
[2020-02-15] MEDS ORDERED: NIFEDIPINE 30 MG TAB.ER.24 PO ONE ×2 (18:45→21:00)
[2020-02-15] MEDS ORDERED: PENICILLIN G-K 5 MILLION UNIT VIAL ONE ×2 (18:45→22:33)
[2020-02-15] MEDS: RINGERS SOLUTION,LACTATED 1,000 ML IV PRN ×2 (18:48→20:01)
[2020-02-15 18:55] LABS: URINE AMPHETAMINES SCREEN NEGATIVE; URINE BARBITURATES SCREEN NEGATIVE; URINE BENZODIAZEPINES SCREEN NEGATIVE; URINE COCAINE SCREEN NEGATIVE; URINE MARIJUANA (THC) SCREEN NEGATIVE; URINE METHADONE SCREEN NEGATIVE; URINE PHENCYCLIDINE SCREEN NEGATIVE
[2020-02-15] MEDS ORDERED: RINGERS SOLUTION,LACTATED 1,000 ML IV ONE (19:00)
[2020-02-15] MEDS ORDERED: BETAMET ACET/BETAMET NA INJ 6 MG/1 ML IM ONE (19:00)
[2020-02-15 19:13] LABS: BACTERIA (WET MOUNT) 3+ BACTERIA SEEN; EPITHELIALS (WET MOUNT) 3+ EPITHELIALS SEEN; RBCS (WET MOUNT) RARE RBCS SEEN; T.VAGINALIS (WET MOUNT) NO TRICHOMONAS SEEN; WBCS (WET MOUNT) FEW WBCS SEEN; YEAST (WET MOUNT) NO YEAST SEEN
[2020-02-15] MEDS ORDERED: HYDROXYZINE PAMOATE 50 MG CAPSULE ONE (19:53)
[2020-02-15 20:44] LABS: CHLAM PCR NOT DETECTED (NOT DETECT)
[2020-02-15] MEDS ORDERED: HYDROXYZINE PAMOATE 50 MG CAPSULE PO ONE (21:00)
[2020-02-15] MEDS: PENICILLIN G-K 5 MILLION UNIT VIAL IV SCH (22:45)
[2020-02-16] MEDS ORDERED: NIFEDIPINE 10 MG CAPSULE ONE (00:36)
[2020-02-16] MEDS ORDERED: PENICILLIN G-K 5 MILLION UNIT VIAL ONE ×3 (02:42→09:25)
[2020-02-16] MEDS: PENICILLIN G-K 5 MILLION UNIT VIAL IV SCH ×3 (02:50→10:06)
[2020-02-16] MEDS: NIFEDIPINE 10 MG CAPSULE PO SCH ×2 (05:08→07:53)
[2020-02-16] MEDS: RINGERS SOLUTION,LACTATED 1,000 ML IV PRN ×2 (06:27→07:16)
--- NOTE | 2020-02-16 11:06 | PDOC PROGRESS REPORT ---
Subjective Progress Note for:: 02/16/20 Subjective:: Feeling better this am. Feels sore but no regular contractions this am. No VB or LOF. GOod FM. Reason For Visit: Physical Exam - Physical Exam Vital Signs: Intake & Output 02/15/20 02/16/20 02/17/20 06:59 06:59 06:59 Intake Total 1152 102 Balance 1152 102 Weight 66.1 kg General appearance: PRESENT: no acute distress, cooperative Respiratory exam: PRESENT: clear to auscultation eli Cardiovascular exam: PRESENT: RRR, +S1, +S2 GI/Abdominal exam: PRESENT: normal bowel sounds Neurological exam: PRESENT: alert, awake, oriented to person, oriented to place, oriented to time Skin exam: PRESENT: normal color, warm Result Laboratory Results: 02/15/20 17:57 Urine Color YELLOW Urine Appearance CLEAR Urine pH 8.0 Ur Specific [place] 1.009 Urine Protein NEGATIVE Urine Glucose (UA) NEGATIVE Urine Ketones NEGATIVE Urine Blood NEGATIVE Urine Nitrite NEGATIVE Ur Leukocyte Esterase NEGATIVE Urine WBC (Auto) 4 Urine RBC (Auto) 1 Assessment & Plan - Diagnosis (1) Threatened labor, antepartum Is this a current diagnosis for this admission?: Yes - Time Time Spent with patient: 15-24 minutes Medications reviewed and adjusted accordingly: Yes Anticipated discharge: Home Within: within 24 hours Disposition: Stable this morning. SHe is on continuous monitoring and did have a heart rate deceleration after a contraction in the night. Maintained good variability and resolved spontaneously. Will continue monitoring. Also will get one additional dose of betamethasone at approximately [address], no cervical change, and reassuring FHT then may discharge this evening with precautioins. Continue current care. May be out of bed to shower and ambulate
--- NOTE | 2020-02-16 16:25 | Non Stress Test Report ---
Non Stress Test Datetime Report Generated by CPN: 02/16/2020 16:25 DEMOGRAPHIC EGA NST: 32.3 INDICATION Indication for Study (NST) Other: ctx MONITORING Monitor Explained: Monitor Explained; Test Explained; Patient Verbalized Understanding Time on Monitor: 02/16/2020 16:01 Time off Monitor: 02/16/2020 16:22 NST Duration: 21 NST INTERVENTIONS NST Interventions: None Physician Notified NST: Dr Mejia BABY A: [id number] BABY A Movement : Present Contraction Frequency : irritability FHR Baseline : 135 Accelerations : 15X15 Decelerations : None Variability : Moderate 6-25bpm NST Review: Meets Criteria for Reactive NST NST Review and Verified By : Magnus Zimmer RN NST Results: Reactive NST REPORT Report Trigger: Send Report
--- NOTE | 2020-02-16 17:21 | PDOC DISCHARGE SUMMARY ---
Impression - Admit/DC Date/PCP Admission Date/Primary Care Provider: 02/15/20 18:43 AG MAYNARD CNM Discharge Date: 02/16/20 - Discharge Diagnosis (1) Threatened labor, antepartum Is this a current diagnosis for this admission?: Yes - Additional Information Resuscitation Status: Full Code - Admitted with contractions every 3 minutes. SHe was given IV fluids, antibiotics, betamethasone x2 and nifedipine by mouth. COntractions spaced out and stopped. She recieved both doses Betamethasone. Reactive NST prior to discharge. Cervix at last check was 150/-2 with intact membranes Discharge Diet: As Tolerated Discharge Activity: Activity As Tolerated Referrals: AG MAYNARD CNM [Primary Care Provider] - Home Medications: No122/Iron/Folic Acid [ Multi Tablet] 1 each PO DAILY 04/23/19 Valacyclovir HCl [Valtrex] 500 mg PO BID 04/23/19 History of Present Illiness History of Present Illness: ISIAH MCKINNON is a 29 year old female Physical Exam - Physical Exam Vital Signs: Intake & Output 02/15/20 02/16/20 02/17/20 06:59 06:59 06:59 Intake Total 1152 102 Balance 1152 102 Weight 66.1 kg Results Laboratory Results: Urine Color YELLOW 02/15/20 17:57 Urine Appearance CLEAR 02/15/20 17:57 Urine pH 8.0 (5.0-9.0) 02/15/20 17:57 Ur Specific [place] 1.009 02/15/20 17:57 Urine Protein NEGATIVE mg/dL (NEGATIVE) 02/15/20 17:57 Urine Glucose (UA) NEGATIVE mg/dL (NEGATIVE) 02/15/20 17:57 Urine Ketones NEGATIVE mg/dL (NEGATIVE) 02/15/20 17:57 Urine Blood NEGATIVE (NEGATIVE) 02/15/20 17:57 Urine Nitrite NEGATIVE (NEGATIVE) 02/15/20 17:57 Urine Bilirubin NEGATIVE (NEGATIVE) 02/15/20 17:57 Urine Urobilinogen NEGATIVE mg/dL (<2.0) 02/15/20 17:57 Ur Leukocyte Esterase NEGATIVE (NEGATIVE) 02/15/20 17:57 Urine WBC (Auto) 4 /HPF 02/15/20 17:57 Urine RBC (Auto) 1 /HPF 02/15/20 17:57 Squamous Epi Cells Auto <1 /HPF 02/15/20 17:57 Urine Mucus (Auto) RARE /LPF 02/15/20 17:57 Urine Ascorbic Acid NEGATIVE (NEGATIVE) 02/15/20 17:57 Epi Cells (Wet Prep) 3+ EPITHELIALS SEEN 02/15/20 18:50 Bacteria (Wet Prep) 3+ BACTERIA SEEN 02/15/20 18:50 Trichomonas (Wet Prep) NO TRICHOMONAS SEEN 02/15/20 18:50 Vaginal WBC FEW WBCS SEEN 02/15/20 18:50 Vaginal RBC RARE RBCS SEEN 02/15/20 18:50 Vaginal Yeast NO YEAST SEEN 02/15/20 18:50 Urine Opiates Screen NEGATIVE 02/15/20 17:57 Urine Methadone Screen NEGATIVE 02/15/20 17:57 Ur Barbiturates Screen NEGATIVE 02/15/20 17:57 Ur Phencyclidine Scrn NEGATIVE 02/15/20 17:57 Ur Amphetamines Screen NEGATIVE 02/15/20 17:57 U Benzodiazepines Scrn NEGATIVE 02/15/20 17:57 Urine Cocaine Screen NEGATIVE 02/15/20 17:57 U Marijuana (THC) Screen NEGATIVE 02/15/20 17:57 Chlamydia DNA (PCR) NOT DETECTED (NOT DETECT) 02/15/20 18:50 N.gonorrhoeae DNA (PCR) NOT DETECTED (NOT DETECT) 02/15/20 18:50 Stroke Is this a Stroke Patient?: Yes Acute Heart Failure - Is this a Heart Failure Patient?: No
[2020-02-16] MEDS ORDERED: BETAMET ACET/BETAMET NA INJ 6 MG/1 ML ONE (17:29)
[2020-02-16] MEDS ORDERED: BETAMET ACET/BETAMET NA INJ 6 MG/1 ML IM ONE (17:30)
--- NOTE | 2020-02-16 18:01 | Admission Physical ---
Datetime Report Generated by CPN: 02/16/2020 18:01 CURRENT ADMISSION Chief Complaint: Uterine Contractions Chief Complaint Other: at 32.2 weeks EGA for threatened labor. She reports 2.5 hours of painful contractions at home. She has a history of three prior deliveries ( G1 at 36 wks , G2 at 33 wks, G3 at 36 wks). She is seen at [facility] but when she called there they told her to go to [facility]. Good FM noted. NO VB or LOF Admit Impression : , Intrauterine Admit Plan: Admit to Unit; Initiate Labor Protocol ALLERGIES Medication Allergies: Yes Medication Allergies: metronidazole (05/02/2019) Latex: No Latex Allergies OBSTETRICAL HISTORY EDC: 04/09/2020 00:00 : 4 Para: 3 Term: 0 : 2 SAB: 0 IAB: 0 Ectopic: 0 Livin Cesareans: 0 VBACs: 0 Multiple Births: 0 Gestational Diabetes: No Rh Sensitization: No Incompetent Cervix: No HARVEY: No Infertility: No ART Treatment: No Uterine Anomaly: No IUGR: No Hx Previous C/S: No Macrosomia: No Hx Loss/Stillborn: No PIH: No Hx : No Placenta Previa/Abruption: No Depression/PP Depression: No PTL/PROM: No Post Hemorrhage: No Current Procedures: Ultrasound; NST Obstetrical History Comments: G1: 2009 36.4 G2: 2010 33.4 G3: May 03 2019, retained placenta needing cytotec 07.08.2019 36.2 G4: current SEE RECORDS Alcohol: No Marijuana : No Cocaine: No Other Illicit Drugs: No Cigarettes: Never Smoker. [id number] MEDICAL HISTORY Diabetes: No Blood Transfusion: No Pulmonary Disease (Asthma, TB): No Breast Disease: No Hypertension: No [employer] Surgery: No Heart Disease: No Hosp/Surgery: No Autoimmune Disorder: No Anesthetic Complications: No Kidney Disease: Yes Abnormal Pap Smear: No Neuro/Epilepsy: No Psychiatric Disorders: No Other Medical Diseases: No Hepatitis/Liver Disease: No Significant Family History: No Varicosities/Phlebitis: No Trauma/Violence : No Thyroid Dysfunction: No Medical History Comments: frequent UTIs(BV infections), anemia (iron transfusions during ), sickle cell trait, kittitian butt lift 2017. second child with aplastic anemia, depression after 3rd baby, GRACIE was incarcerated in jun 2019. INFECTIOUS HISTORY Gonorrhea: No Genital Herpes: Yes Chlamydia: No Tuberculosis: No Syphilis: No Hepatitis: No HIV/AIDS Exposure: No Rash or Viral Illness: No HPV: No Infectious History Comments: HSV outbreak PHYSICAL EXAM General: Normal HEENT: Normal Neurologic: Normal Thyroid: Normal Heart: Normal Lungs: Normal Breast: Normal Back: Normal Abdomen: Normal Genitourinary Exam: Normal Extremities: Normal DTRs: Normal Pelvic Type: Adequate Vital Signs: Reviewed VAGINAL EXAM Dilatation: 1 Effacement: 50 Station: -2 Contraction Comments: every 3 minutes MEMBRANES Pooling: Negative Membranes: Intact FETUS A EGA: 32.2 Monitoring: External US FHR- Baseline: 125 Variability: Moderate 6-25bpm Accelerations: 15X15 Decelerations: None FHR Category: Category I Presentation: Vertex Admit Comment: at 32.2 wks EGA with threatened labor -Admit to LDR -NPO and IVFs: LR at 125 cc/hr after 1 liter bolus -PCN for unknown GBS, obtain culture prior -Nifedipine 30mg now and then in 6 hours begin nifidpine 10mg Q 6 hrs -Will give betamethasone 12 mg IM now and repeat in 24 hrs -cervix 1/50/-2 -intact -Vtx by US at bedside -Mobile Security [employer] notified. PLANS FOR LABOR AND DELIVERY Labor and Delivery: None Pain Management: Epidural Feeding Preference: Breast Benefit of Breast Feed Discussed: Yes Circumcision: Yes INFORMED CONSENT Informed Consent Obtained: Vaginal Delivery; Risks, Benefits and Alternatives Discussed Signature: with User ID: Scott : with User ID: Scott
== END 2020-02-16 17:51 | disposition home or self-care (01) ==
LOC: LC 17:47 → LR 18:43
PROVIDERS: ADMIT Obstetrics & Gynecology; ATTEND Obstetrics & Gynecology
DX: O60.03 Preterm labor without delivery, third trimester (principal); O36.8330 Maternal care for abnormalities of the fetal heart rate or rhythm, third trimester, not applicable or unspecified; O99.820 Streptococcus B carrier state complicating pregnancy; O09.213 Supervision of pregnancy with history of pre-term labor, third trimester; Z3A.32 32 weeks gestation of pregnancy; O99.013 Anemia complicating pregnancy, third trimester; D57.3 Sickle-cell trait
CPT/HCPCS: 94760; 96372; 87210; 87077; 81001; 87081; 80307; 87491; 87591; 59025; G0378 ×2; J3490 ×3; J2540 ×2; J0702 ×2

== ENCOUNTER 2020-03-05 08:11 | Outpatient (CLI) | payer MEDICAID ==
[2020-03-05 08:35] LABS: APPEARANCE,URINE CLEAR; BILIRUBIN,URINE NEGATIVE (NEGATIVE); COLOR,URINE STRAW; GLUCOSE, URINE NEGATIVE (NEGATIVE); KETONES,URINE NEGATIVE (NEGATIVE); LEUKOCYTE ESTERASE,URINE NEGATIVE (NEGATIVE); NITRITE,URINE NEGATIVE (NEGATIVE); PROTEIN,URINE NEGATIVE (NEGATIVE); URINE SPECIFIC GRAVITY 1.008; UROBILINOGEN,URINE NEGATIVE mg/dL (<2.0)
[2020-03-05 08:56] LABS: URINE AMPHETAMINES SCREEN NEGATIVE; URINE BARBITURATES SCREEN NEGATIVE; URINE BENZODIAZEPINES SCREEN NEGATIVE; URINE COCAINE SCREEN NEGATIVE; URINE MARIJUANA (THC) SCREEN NEGATIVE; URINE METHADONE SCREEN NEGATIVE; URINE PHENCYCLIDINE SCREEN NEGATIVE
--- NOTE | 2020-03-05 11:44 | Non Stress Test Report ---
Non Stress Test Datetime Report Generated by CPN: 03/05/2020 11:43 DEMOGRAPHIC EGA NST: 35.0 INDICATION Indication for Study (NST) Other: labor check; IUP at 35.0 VITAL SIGNS Temperature - NST: 98.7 Pulse - NST: 93 RESP - NST: 18 NBPSYS NST: 99 NBPDIA NST: 65 MONITORING Monitor Explained: Monitor Explained; Test Explained; Patient Verbalized Understanding Time on Monitor: 03/05/2020 08:22 Time off Monitor: 03/05/2020 10:34 NST Duration: 132 NST INTERVENTIONS NST Interventions: PO Hydration Physician Notified NST: J. Shannon, CNM BABY A: [id number] BABY A Movement : Present Contraction Frequency : 2-4 FHR Baseline : 130 Accelerations : 15X15 Decelerations : None Variability : Moderate 6-25bpm NST Review: Meets Criteria for Reactive NST NST Review and Verified By : Volodymyr LAURA Results: Reactive NST REPORT Report Trigger: Send Report
[2020-03-05] MEDS ORDERED: LIDOCAINE 1% INJ-PF (10 MG/ML) 30 ML SDV ONE (14:54)
[2020-03-05] MEDS ORDERED: OXYTOCIN/0.9 % SODIUM CHLORIDE 30 UNIT/500 ML RTUINJ ONE (14:54)
[2020-03-05] MEDS ORDERED: MISOPROSTOL 0.2 MG TABLET ONE (14:54)
[2020-03-05] MEDS ORDERED: OXYTOCIN 10 UNIT/ML VIAL ONE (14:54)
== END 2020-03-05 11:40 | disposition home or self-care (01) ==
LOC: LC 08:11
PROVIDERS: ATTEND Obstetrics & Gynecology Gynecology
DX: O47.03 False labor before 37 completed weeks of gestation, third trimester (principal); Z3A.35 35 weeks gestation of pregnancy
CPT/HCPCS: 59025; 81001; 80307; J3490; J2590 ×2

== ENCOUNTER 2020-03-05 14:54 | Inpatient (IN) | payer MEDICAID ==
[2020-03-05] MEDS ORDERED: PENICILLIN G POTASSIUM 5,000,000 UNIT in DEXTROSE 5%-WATER 100 ML IV ONE (15:00)
[2020-03-05] MEDS ORDERED: RINGERS SOLUTION,LACTATED 1,000 ML IV ONE (15:00)
[2020-03-05] MEDS ORDERED: PENICILLIN G-K 5 MILLION UNIT VIAL ONE (15:03)
[2020-03-05] MEDS ORDERED: ACETAMINOPHEN 650 MG SUPP.RECT PR PRN (15:40)
[2020-03-05] MEDS ORDERED: DIPH/PERTUSS(ACELL)/TETANUS VAC/PF 0.5 ML SYR (>=10YO) IM PRN (15:40)
[2020-03-05] MEDS ORDERED: PROMETHAZINE HCL 25 MG SUPP.RECT PR PRN (15:40)
[2020-03-05] MEDS ORDERED: DIBUCAINE 1% OINTMENT 28 GM TP PRN (15:40)
[2020-03-05] MEDS ORDERED: MAGNESIUM HYDROXIDE SUSP 30 ML UDCUP PO PRN (15:40)
[2020-03-05] MEDS ORDERED: PROMETHAZINE HCL INJ 25 MG/1 ML VIAL IV PRN (15:40)
[2020-03-05] MEDS ORDERED: BENZOCAINE/MENTHOL AEROSOL SPRAY 56 ML TOP PRN (15:40)
[2020-03-05] MEDS ORDERED: DIPHENHYDRAMINE HCL 25 MG CAPSULE PO PRN (15:40)
[2020-03-05] MEDS ORDERED: MEASLES,MUMPS&RUBELLA VACC/PF 0.5 ML VIAL SUBCUT PRN (15:40)
[2020-03-05] MEDS ORDERED: PSEUDOEPHEDRINE HCL 30 MG TABLET PO PRN (15:40)
[2020-03-05] MEDS ORDERED: ZOLPIDEM TARTRATE 5 MG TABLET PO PRN (15:40)
[2020-03-05] MEDS ORDERED: GLYCERIN/WITCH HAZEL LEAF 1 EACH MED..WIPE TP PRN (15:40)
[2020-03-05] MEDS ORDERED: NA PHOS,M-B/NA PHOS,DI-BA (ADULT) 133 ML ENEMA PR PRN (15:40)
[2020-03-05] MEDS ORDERED: ACETAMINOPHEN WITH CODEINE #3 TABLET PO PRN (15:40)
[2020-03-05] MEDS ORDERED: OXYTOCIN/0.9 % SODIUM CHLORIDE 30 UNIT/500 ML RTUINJ IV PRN (15:40)
[2020-03-05 16:24] LABS: ABSOLUTE EOSINOPHILS # (AUTO) 0.1 10^3/uL (0.0-0.6); ABSOLUTE LYMPHOCYTES (AUTO) 1.1 10^3/uL (0.5-4.7); ABSOLUTE MONOCYTES (AUTO) 0.7 10^3/uL (0.1-1.4); ABSOLUTE NEUT (AUTO) 6.5 10^3/uL (1.7-8.2); BASOPHILS % (AUTO) 0.2 % (0-2); EOSINOPHILS % (AUTO) 1.1 % (0-6); HEMOGLOBIN 11.4 g/dL (12.0-15.5); LYMPHOCYTES % (AUTO) 13.4 % (13-45); MEAN CORPUSCULAR HEMOGLOBIN 30.2 pg (27.0-33.4); MEAN CORPUSCULAR HGB CONC 34.4 g/dL (32.0-36.0); MEAN CORPUSCULAR VOLUME 88 fl (80-97); MONOCYTES % (AUTO) 7.8 % (3-13); PLATELET COUNT 301 10^3/uL (150-450); RED BLOOD COUNT 3.76 10^6/uL (3.72-5.28); SEGMENTED NEUTROPHILS % (AUTO) 77.5 % (42-78); TOTAL CELLS COUNTED % (AUTO) 100 %; WHITE BLOOD COUNT 8.4 10^3/uL (4.0-10.5)
[2020-03-05] MEDS ORDERED: IBUPROFEN 800 MG TABLET ONE (17:03)
[2020-03-05] MEDS ORDERED: PROMETHAZINE HCL 25 MG TABLET ONE (17:08)
[2020-03-05] MEDS: PROMETHAZINE HCL 25 MG TABLET PO PRN ×2 (17:09→21:04)
--- NOTE | 2020-03-05 17:23 | Delivery Summary ---
Del Sum A-C Datetime Report Generated by CPN: 03/05/2020 17:23 DELIVERY PERSONNEL DELIVERY PERSONNEL: [id number] Delivery Doctor:: Shaq Dean MD Labor and Delivery Nurse:: Ally Brandt RNimport/export agent Nurse:: DIANA Del Rosario Nursery Nurse:: Maxine Renae RN Tube Teller/TURNAROUND PLANNER: Pascale Schmitz CST Tube Teller/TURNAROUND PLANNER: Hellen Nolen, MANAGER OF IT MATERNAL INFORMATION Delivery Anesthesia: None Medications After Delivery: Pitocin Bolus-Please Comment; Pitocin 30 Units in 500ml NS/D5W; Cytotec 1000mcg Per Rectum/Vagina Meds After Delivery Comment: pitocin 30units/500 ml bolus given Delivery QBL: 300 Maternal Complications: None Complication Details: PTL LABOR SUMMARY EDC: 04/09/2020 00:00 No. Babies in Womb: 1 Attempted: No Labor Anesthesia: None LABOR INFORMATION Reason for Induction: Not Applicable Onset of Labor: 03/05/2020 01:00 Complete Dilatation: 03/05/2020 14:59 Oxytocin: N/A Group B Beta Strep: 1 GROUP B BETA HEMOLYTIC STREPTOCOCCUS RECOVERED Penicillin and ampicillin are drugs of choice for treatment of beta-hemolytic streptococcal infections. Susceptibility testing of penicillins and other beta-lactam agents approved by the FDA for treatment of beta-hemolytic streptococcal infections need not be performed routinely because nonsusceptible isolates are extremely rare in any beta-hemolytic streptococcus and have not been reported for Streptococcus pyogenes (group A). (CLSI) Antibiotics # of Doses: 1 Antibiotics Time of Last Dose: 1514 Name of Antibiotic Given: Pencillin G Steroids Given: Full Course; > 24 Hours before Delivery Reason Steroids Not Administered: Not Applicable MEMBRANES Membranes Rupture Method: Artificial Rupture of Membranes: 03/05/2020 15:10 Length of Rupture (hr): 0.38 Amniotic Fluid Color: Clear Amniotic Fluid Amount: Moderate Amniotic Fluid Odor: Normal STAGES OF LABOR Stage 1 hr: 13 Stage 1 min: 59 Stage 2 hr: 0 Stage 2 min: 34 Stage 3 hr: 0 Stage 3 min: 3 Total Time in Labor hr: 14 Total Time in Labor min: 36 VAGINAL DELIVERY Episiotomy: None Laceration #1: None Laceration Extension #1: N/A Sponge Count Correct: N/A Sharps Count Correct: N/A BABY A INFORMATION Infant Delivery Date/Time: 03/05/2020 15:33 Method of Delivery: Vaginal Born in Route : No : N/A Forceps: N/A Vacuum Extraction: N/A Shoulder Dystocia : No PRESENTATION/POSITION BABY A Presentation: Cephalic Cephalic Presentation: Vertex Vertex Position: Left Occipital Anterior Breech Presentation: N/A PLACENTA INFORMATION BABY A Placenta Delivery Time : 03/05/2020 15:36 Placenta Method of Delivery: Spontaneous Placenta Status: Delivered SCORES BABY A Heart Rate 1 min: >100 bpm Resp Effort 1 min: Good Cry Reflex Irritability 1 min: Cough or Sneeze or Pulls Away Muscle Tone 1 min: Active Motion Color 1 min: Body Radnor, Extremities Blue SCORE 1 MIN: 9 Heart Rate 5 min: >100 bpm Resp Effort 5 min: Good Cry Reflex Irritability 5 min: Cough or Sneeze or Pulls Away Muscle Tone 5 min: Active Motion Color 5 min: Body Rad[place], Extremities Blue SCORE 5 MIN: 9 INFANT INFORMATION BABY A Gestational Age at Delivery: 35.0 Gestational Status: Late - 34- 36.6 Weeks Outcome : Liveborn Infant Condition : Stable Sex: Male IDENTIFICATION BABY A Infant Verification Date/Time: 03/05/2020 16:18 ID Band Number: [id number] Mother's Name Verified: Yes Infant RN Verifying Infant: Guero Rosario RN and APastora Restrepodarrenrobson, RN WEIGHT/LENGTH BABY A Birthweight (gm): 2546 Weight (lb): 5 Infant Weight (oz): 10 Infant Length (in): 18.50 Length (cm): 46.99 CORD INFORMATION BABY A No. Cord Vessels: 3 Nuchal Cord : Around Neck x1, Tight Cord Blood Taken: Yes-For Storage (Mom's Blood type +) Infant Suction: Mouth; Nose ASSESSMENT BABY A Complications: None Physical Findings at Delivery: Within Normal Limits Infant Respirations: Appears Normal Skin to Skin: Yes Skin to Skin Time (min): 30 Director Case/ALS Called : No Care By: Kirit Renae Transferred To: Remains with Mother BABY B INFORMATION : N/A SIGNATURES Signature: with User ID: [email or web address]
[2020-03-05] MEDS: DOCUSATE SODIUM 100 MG CAPSULE PO SCH (18:35)
[2020-03-05] MEDS: FERROUS SULFATE 325 MG TABLET PO SCH (18:35)
[2020-03-05] MEDS: IBUPROFEN 800 MG TABLET PO SCH (21:04)
[2020-03-05] MEDS: FAMOTIDINE 20 MG TABLET PO SCH (21:05)
[2020-03-06] MEDS: IBUPROFEN 800 MG TABLET PO SCH ×3 (05:42→21:13)
[2020-03-06 06:46] LABS: HEMATOCRIT 31.5 % (36.0-47.0); MEAN CORPUSCULAR HEMOGLOBIN 30.5 pg (27.0-33.4); MEAN CORPUSCULAR HGB CONC 34.8 g/dL (32.0-36.0); MEAN CORPUSCULAR VOLUME 88 fl (80-97); PLATELET COUNT 286 10^3/uL (150-450); RED BLOOD COUNT 3.59 10^6/uL (3.72-5.28); RED CELL DISTRIBUTION WIDTH 14.2 % (11.5-14.0); WHITE BLOOD COUNT 9.6 10^3/uL (4.0-10.5)
[2020-03-06] MEDS: FERROUS SULFATE 325 MG TABLET PO SCH ×2 (10:00→17:24)
[2020-03-06] MEDS: PRENATAL VITAMIN W DHA CAPSULE PO SCH (10:00)
[2020-03-06] MEDS: SENNOSIDES/DOCUSATE 8.6-50 MG 1 EACH TABLET PO SCH (10:00)
[2020-03-06] MEDS: FAMOTIDINE 20 MG TABLET PO SCH ×2 (10:00→21:13)
[2020-03-06] MEDS: DOCUSATE SODIUM 100 MG CAPSULE PO SCH ×2 (10:00→17:24)
--- NOTE | 2020-03-06 12:35 | PDOC PROGRESS REPORT ---
Subjective-OB Progress Note for:: 03/06/20 Subjective: reports bleeding slowing, pain controlled with current meds. denies needs Physical Exam (OB) Vital Signs: Temp Pulse Resp BP Pulse Ox 97.5 F 66 18 109/73 100 03/06/20 07:15 03/06/20 07:15 03/06/20 07:15 03/06/20 07:15 03/06/20 07:15 Intake & Output 03/05/20 03/06/20 03/07/20 06:59 06:59 06:59 Intake Total 1000 Output Total 123 Balance 877 Weight 68.4 kg - Abdomen Description: Soft Hernia Present: No Fundal Description: Firm, Midline Fundal Height: u/u - u/2 - Abdominal Distension: No distension Tenderness: Nontender - Extremities Lower extremities: Fariba's sign - neg Calf: Normal, Nontender Objective-Diagnostic Laboratory: 03/06/20 06:26 03/05/20 03/05/20 03/06/20 16:03 16:03 06:26 WBC 8.4 9.6 RBC 3.76 3.59 L Hgb 11.4 L 11.0 L Hct 33.0 L 31.5 L MCV 88 88 MCH 30.2 30.5 MCHC 34.4 34.8 RDW 14.0 14.2 H Plt Count 301 286 Seg Neutrophils % 77.5 Blood Type B POSITIVE Antibody Screen NEGATIVE Assessment and Plan(PN) - Assessment and Plan (1) delivery Is this a current diagnosis for this admission?: Yes - Time Spent with Patient Time with patient: Less than 15 minutes Medications reviewed and adjusted accordingly: Yes - Disposition Anticipated Discharge: Home Within: within 24 hours
[2020-03-07] MEDS: IBUPROFEN 800 MG TABLET PO SCH (07:32)
--- NOTE | 2020-03-07 10:01 | PDOC DISCHARGE SUMMARY ---
Impression - Admit/DC Date/PCP Admission Date/Primary Care Provider: 03/05/20 15:02 AG MAYNARD CNM Discharge Date: 03/07/20 - Discharge Diagnosis (1) delivery Is this a current diagnosis for this admission?: Yes - Additional Information Discharge Diet: Regular Discharge Activity: Balance Activity w/Rest, Pelvic Rest Referrals: AG MAYNARD CNM [Primary Care Provider] - Prescriptions: Ibuprofen [Motrin 800 mg Tablet] 800 mg PO Q8HP PRN #60 tablet PRN Reason: Home Medications: No122/Iron/Folic Acid [ Multi Tablet] 1 each PO DAILY 04/23/19 Ibuprofen [Motrin 800 mg Tablet] 800 mg PO Q8HP PRN #60 tablet 03/07/20 Results Laboratory Results: WBC 9.6 10^3/uL (4.0-10.5) 03/06/20 06:26 RBC 3.59 10^6/uL (3.72-5.28) L 03/06/20 06:26 Hgb 11.0 g/dL (12.0-15.5) L 03/06/20 06:26 Hct 31.5 % (36.0-47.0) L 03/06/20 06:26 MCV 88 fl (80-97) 03/06/20 06:26 MCH 30.5 pg (27.0-33.4) 03/06/20 06:26 MCHC 34.8 g/dL (32.0-36.0) 03/06/20 06:26 RDW 14.2 % (11.5-14.0) H 03/06/20 06:26 Plt Count 286 10^3/uL (150-450) 03/06/20 06:26 Lymph % (Auto) 13.4 % (13-45) 03/05/20 16:03 [place] % (Auto) 7.8 % (3-13) 03/05/20 16:03 Eos % (Auto) 1.1 % (0-6) 03/05/20 16:03 Baso % (Auto) 0.2 % (0-2) 03/05/20 16:03 Absolute Neuts (auto) 6.5 10^3/uL (1.7-8.2) 03/05/20 16:03 Absolute Lymphs (auto) 1.1 10^3/uL (0.5-4.7) 03/05/20 16:03 Absolute Monos (auto) 0.7 10^3/uL (0.1-1.4) 03/05/20 16:03 Absolute Eos (auto) 0.1 10^3/uL (0.0-0.6) 03/05/20 16:03 Absolute Basos (auto) 0.0 10^3/uL (0.0-0.2) 03/05/20 16:03 Seg Neutrophils % 77.5 % (42-78) 03/05/20 16:03 RPR NONREACTIVE (NONREACTIVE) 03/05/20 16:03 Blood Type B POSITIVE 03/05/20 16:03 Antibody Screen NEGATIVE 03/05/20 16:03 Plan Plan of Treatment: follow up with OB in [place] for post check
[2020-03-07] MEDS: FERROUS SULFATE 325 MG TABLET PO SCH (10:10)
[2020-03-07] MEDS: DOCUSATE SODIUM 100 MG CAPSULE PO SCH (10:10)
[2020-03-07] MEDS: PRENATAL VITAMIN W DHA CAPSULE PO SCH (10:10)
[2020-03-07] MEDS: FAMOTIDINE 20 MG TABLET PO SCH (10:10)
[2020-03-07] MEDS: SENNOSIDES/DOCUSATE 8.6-50 MG 1 EACH TABLET PO SCH (10:10)
[2020-03-07 11:19] VITALS: BP 102/58
--- NOTE | 2020-03-10 07:02 | Admission Physical ---
Datetime Report Generated by CPN: 03/10/2020 07:01 CURRENT ADMISSION Chief Complaint: Uterine Contractions Chief Complaint Other: at 32.2 weeks EGA for threatened labor. She reports 2.5 hours of painful contractions at home. She has a history of three prior deliveries ( G1 at 36 wks , G2 at 33 wks, G3 at 36 wks). She is seen at [facility] but when she called there they told her to go to [facility]. Good FM noted. NO VB or LOF Admit Impression : , Intrauterine Admit Plan: Admit to Unit; Initiate Labor Protocol ALLERGIES Medication Allergies: Yes Medication Allergies: metronidazole (03/05/2020) Medication Allergies: metronidazole (05/02/2019) Medication Allergies: metronidazole (05/01/2019) Medication Allergies: metronidazole (04/23/2019) Medication Allergies: No Known Allergies (03/09/2017) Medication Allergies: No Known Allergies (03/23/2016) Latex: No Latex Allergies OBSTETRICAL HISTORY EDC: 04/09/2020 00:00 : 4 Para: 3 Term: 0 : 2 SAB: 0 IAB: 0 Ectopic: 0 Livin Cesareans: 0 VBACs: 0 Multiple Births: 0 Gestational Diabetes: No Rh Sensitization: No Incompetent Cervix: No HARVEY: No Infertility: No ART Treatment: No Uterine Anomaly: No IUGR: No Hx Previous C/S: No Macrosomia: No Hx Loss/Stillborn: No PIH: No Hx : No Placenta Previa/Abruption: No Depression/PP Depression: Yes PTL/PROM: No Post Hemorrhage: No Current Procedures: Ultrasound; NST Obstetrical History Comments: G1: 2009 36.4 G2: 2010 33.4 G3: May 03 2019, retained placenta needing cytotec 07.08.2019 36.2 G4: current SEE RECORDS Alcohol: No Marijuana : No Cocaine: No Other Illicit Drugs: No Cigarettes: Never Smoker. 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 second child with aplastic anemia, depression after 3rd baby, GRACIE was incarcerated in jun 2019. INFECTIOUS HISTORY Gonorrhea: No Genital Herpes: Yes Chlamydia: No Tuberculosis: No Syphilis: No Hepatitis: No HIV/AIDS Exposure: No Rash or Viral Illness: No HPV: No Infectious History Comments: HSV outbreak PHYSICAL EXAM General: Normal HEENT: Normal Neurologic: Normal Thyroid: Normal Heart: Normal Lungs: Normal Breast: Normal Back: Normal Abdomen: Normal Genitourinary Exam: Normal Extremities: Normal DTRs: Normal Pelvic Type: Adequate Vital Signs: Reviewed VAGINAL EXAM Dilatation: 1 Effacement: 50 Station: -2 Contraction Comments: every 3 minutes MEMBRANES Pooling: Negative Membranes: Intact FETUS A EGA: 32.2 Monitoring: External US FHR- Baseline: 125 Variability: Moderate 6-25bpm Accelerations: 15X15 Decelerations: None FHR Category: Category I Presentation: Vertex Admit Comment: at 32.2 wks EGA with threatened labor -Admit to LDR -NPO and IVFs: LR at 125 cc/hr after 1 liter bolus -PCN for unknown GBS, obtain culture prior -Nifedipine 30mg now and then in 6 hours begin nifidpine 10mg Q 6 hrs -Will give betamethasone 12 mg IM now and repeat in 24 hrs -cervix 50/-2 -intact -Vtx by US at bedside -Senior Project Leader/Team Lead notified. PLANS FOR LABOR AND DELIVERY Labor and Delivery: None Pain Management: Epidural Feeding Preference: Breast Benefit of Breast Feed Discussed: Yes Circumcision: Yes INFORMED CONSENT Informed Consent Obtained: Vaginal Delivery; Risks, Benefits and Alternatives Discussed Signature: with User ID: Scott : with User ID: Scott
== END 2020-03-07 12:55 | disposition home or self-care (01) | DRG 806 ==
LOC: LC 14:54 → LR 15:02 → 2S 18:35
PROVIDERS: ADMIT Obstetrics & Gynecology Gynecology; ATTEND Obstetrics & Gynecology Gynecology
PROC: 10E0XZZ Delivery of Products of Conception, External Approach (ICD-10-PCS; principal; 2020-03-05)
DX: O60.14X0 Preterm labor third trimester with preterm delivery third trimester, not applicable or unspecified (principal); O98.32 Other infections with a predominantly sexual mode of transmission complicating childbirth; O98.82 Other maternal infectious and parasitic diseases complicating childbirth; A60.00 Herpesviral infection of urogenital system, unspecified; B95.1 Streptococcus, group B, as the cause of diseases classified elsewhere; Z3A.35 35 weeks gestation of pregnancy; O69.1XX0 Labor and delivery complicated by cord around neck, with compression, not applicable or unspecified; O99.02 Anemia complicating childbirth; D64.9 Anemia, unspecified; Z37.0 Single live birth
CPT/HCPCS: 36415; 85025; 85027; 86592; 86850; 86900; 86901; J2540; J3490